=== PATIENT | male | born 1995 | race Caucasian/White ===

== ENCOUNTER 2024-02-23 01:20 | Emergency (ER) | payer MEDICAID, OTHER ==
[~2024-02-23] VITALS: Ht 172.7 cm; Wt 104.3 kg
[2024-02-23] MEDS ORDERED: IBUPROFEN 400 MG TABLET ONE (01:50)
[2024-02-23] MEDS ORDERED: GUAIFENESIN/D-METHORPHAN HB 5 ML UDC ONE (01:50)
[2024-02-23] MEDS: GUAIFENESIN/D-METHORPHAN HB 5 ML UDC PO ONE (01:57)
[2024-02-23] MEDS: IBUPROFEN 400 MG TABLET PO ONE (01:57)
[2024-02-23] MEDS ORDERED: AZIT250T13 PO (02:52)
[2024-02-23 03:08] VITALS: BP 126/79; TEMP 98.6; O2SAT 97
== END 2024-02-23 03:09 | disposition home or self-care (01) ==
LOC: ER 01:22
DX: J18.9 Pneumonia, unspecified organism (principal); M54.6 Pain in thoracic spine; Z20.822 Contact with and (suspected) exposure to COVID-19
CPT/HCPCS: 71045-TC